=== PATIENT | male | born 1985 | race Caucasian/White ===

== ENCOUNTER 2016-12-18 12:39 | Emergency (ER) | payer OTHER ==
[~2016-12-18 12:39] MED LIST: ALBU17IN2 INH; AZIT500T2 PO; BACT800T5 PO; HYDR-3713 PO; LISI10TA4 PO; METF850T PO; OSEL75CA PO; PRED20TA PO; SALI0.653; TESS100C PO
[2016-12-18] MEDS ORDERED: KETOROLAC 30 MG/ML VIAL (J1885) As Ordered ONE (13:06)
--- NOTE | 2016-12-18 14:36 | EDDOCDS ---
Physician Documentation [facility] Name: Jr Ragland Age: 31 yrs Sex: Male : 1985 Arrival Date: 12/18/2016 Time: 12:39 Bed TR7 Private MD: NO PRIMARY PHYSICIAN, . Disposition: 12/18/16 14:12 Discharged to Home/Self Care. Impression: Strain of muscle, fascia and tendon of lower back, Sciatica, right side. - Condition is Stable. - Discharge Instructions: Back Pain, Adult, Muscle Strain, Sciatica. - Prescriptions for Ibuprofen 800 mg Oral Tablet - take 1 tablet by ORAL route every 8 hours As needed take with food; 30 tablet. Robaxin 500 mg Oral Tablet - take 2 tablet by ORAL route every 6 hours As needed; 40 tablet. Ultram 50 mg Oral Tablet - take 1 tablet by ORAL route every 6 hours As needed MDD: 4 tabs; 20 tablet. - Medication Reconciliation, Local Pharmacy Hours, Work Release Form - 1 day form. - Follow up: Tristen Varela; When: As needed; Reason: Recheck today's complaints. Follow up: Emergency Department; When: As needed; Reason: Worsening of conditions. - Problem is new. - Symptoms have improved. Historical: - Allergies: Red Dye; - Home Meds: 1. albuterol sulfate 90 mcg/actuation inhalation HFAA 2 puffs every 4-6 hours 2. Levaquin 500 mg Oral tab 1 tab every 24 hours - PMHx: Hypertension; Diabetes - NIDDM: uncontrolled; - PSHx: bilateral knee surgery; Tonsillectomy; Adenoidectomy; - Social history: Smoking status: Patient uses tobacco products, heavy tobacco smoker. No barriers to communication noted, The patient speaks fluent Kinyarwanda, Speaks appropriately for age. - Family history: Not pertinent. - : The pt / caregiver states he / she is not on anticoagulants. Home medication list is obtained from the patient. - Exposure Risk Screening:: None identified. Vital Signs: 12/18 12:41 BP 156 / 79; Pulse 96; Resp 18 S; Temp 98.0(O); Pulse Ox 95% on R/A; Weight 99.79 kg / gr2 220 lbs (R); Height 6 ft. 3 in. (190.50 cm) (R); Pain 9/10; 14:15 BP 122 / 69 LA Sitting (auto/lg); Pulse 80; Resp 22; Temp 97.9(T); Pulse Ox 95% on R/A; bnb Pain 8/10; 12:41 Body Mass Index 27.50 (99.79 kg, 190.50 cm) gr2 14:15 PT STATED HIS PAIN LEVEL IS STILL VERY HIGH. bnb MDM: 12:58 ketorolac 60 mg IM once ordered. ar2 12:58 Diazepam 5 mg IM once ordered. ar2 13:28 Financial registration complete. mm15 13:28 [facility] Payment Agreement was scanned into [employer] and attached to record. mm15 Administered Medications: 13:14 Drug: ketorolac 60 mg [ketorolac 30 mg/mL (1 mL) injection solution (2 mL)] Route: IM; mk4 Site: left gluteus; 13:14 Drug: Diazepam 5 mg [diazepam 5 mg/mL injection syringe (1 mL)] Route: IM; Site: left mk4 gluteus; Signatures: Liborio Hamilton PA-C PA-C ar2 Macy Esparza RN RN hs1 Naya Mayer mm15 Jesusita Puga RN RN mk4 The chart was reviewed and I authenticate all verbal orders and agree with the evaluation and treatment provided.Attachments: 13:28 [facility] Payment Agreement mm15 MTDD
--- NOTE | 2016-12-18 14:36 | EDDOCDS ---
Nurse's Notes [facility] Name: Jr Ragland Age: 31 yrs Sex: Male : 1985 Arrival Date: 12/18/2016 Time: 12:39 Bed TR7 Private MD: NO PRIMARY PHYSICIAN, . Diagnosis: Strain of muscle, fascia and tendon of lower back;Sciatica, right side Presentation: 12/18 12:43 Presenting complaint: Patient states: while carrying a washing machine down stairs felt hs1 back lock up and uncomfortable. Acute neurological deficits are not present. Mechanism of Injury: Lifting. Adult Sepsis Screening: The patient does not have new or worsening altered mentation. Patient's respiratory rate is less than 22. Systolic blood pressure is greater than 100. Patient has a qSOFA score of 0- Negative Sepsis Screen. Suicide/Homicide risk assessment- the patient denies having any suicidal and/or homicidal ideations and does not present with any other emotional, behavioral or mental health complaints. Status: Patient is not a underwriting service representative or dependent. Transition of care: patient was not received from another setting of care. 12:43 Acuity: SARKIS Level 4 hs1 12:43 Method Of Arrival: Walkin/Carried/Asstd hs1 Triage Assessment: 12:46 General: Appears uncomfortable, Behavior is appropriate for age, cooperative. Pain: hs1 Location: right low back Pain currently is 9 out of 10 on a pain scale. Pain radiates to right leg. HIV screening NA for this visit Offered previously. Musculoskeletal: Range of motion intact in all extremities. Historical: - Allergies: Red Dye; - Home Meds: 1. albuterol sulfate 90 mcg/actuation inhalation HFAA 2 puffs every 4-6 hours 2. Levaquin 500 mg Oral tab 1 tab every 24 hours - PMHx: Hypertension; Diabetes - NIDDM: uncontrolled; - PSHx: bilateral knee surgery; Tonsillectomy; Adenoidectomy; - Social history: Smoking status: Patient uses tobacco products, heavy tobacco smoker. No barriers to communication noted, The patient speaks fluent Hebrew, Speaks appropriately for age. - Family history: Not pertinent. - : The pt / caregiver states he / she is not on anticoagulants. Home medication list is obtained from the patient. - Exposure Risk Screening:: None identified. Screenin:42 Infection Control. gr2 14:34 Screening information is obtained from the patient. Fall risk: No risks identified. hs1 Assistance ADL's: requires no assistance with activities of daily living. Abuse/DV Screen: The patient / caregiver reports he/she is: not in a situation that causes fear, pain or injury. Nutritional screening: No deficits noted. Advance Directives: There is no active DNR order. home support is adequate. Assessment: 13:17 General: Appears uncomfortable, Behavior is cooperative. Awake, alert, oriented. Skin mk4 warm and dry. Moves all extremities. Respirations unlabored. The patient / caregiver is instructed regarding the plan of care and ED course. 13:17 Pain: Complains of pain in right low back. mk4 14:31 General: Appears comfortable. mk4 Vital Signs: 12:41 BP 156 / 79; Pulse 96; Resp 18 S; Temp 98.0(O); Pulse Ox 95% on R/A; Weight 99.79 kg gr2 (R); Height 6 ft. 3 in. (190.50 cm) (R); Pain 9/10; 14:15 BP 122 / 69 LA Sitting (auto/lg); Pulse 80; Resp 22; Temp 97.9(T); Pulse Ox 95% on R/A; bnb Pain 8/10; 12:41 Body Mass Index 27.50 (99.79 kg, 190.50 cm) gr2 14:15 PT STATED HIS PAIN LEVEL IS STILL VERY HIGH. bnb Vitals: 12:41 Log In Time: December 18, 2016 at 12:41. gr2 ED Course: 12:40 Patient visited by Emmanuel Rodriguez. gr2 12:40 NO PRIMARY PHYSICIAN, . is Private Physician. gr2 12:40 Patient moved to Waiting gr2 12:42 Patient visited by Emmanuel Rodriguez. gr2 12:42 Patient moved to Pre RCE gr2 12:44 Triage Initiated hs1 12:47 Patient moved to Triage 3 hs1 12:48 Liborio Hamilton PA-C is PHCP. ar2 12:48 Karly Capone MD is Attending Physician. ar2 12:48 Patient visited by Liborio Hamilton PA-C. ar2 13:12 Patient moved to PD2 / mlb1 13:24 Patient visited by Jesusita Puga RN. mk4 13:28 [facility] Payment Agreement was scanned into [employer] and attached to record. mm15 13:55 Patient visited by Jesusita Puga RN. mk4 14:11 Tristen Varela is Referral Physician. ar2 14:17 Patient visited by Princess Everett PCA. bnb 14:31 Patient moved to 7 mk4 14:34 No IV's were initiated during this patient's visit. No procedures done that require hs1 assistance. 14:35 Patient has correct armband on for positive identification. hs1 Administered Medications: 13:14 Drug: ketorolac 60 mg [ketorolac 30 mg/mL (1 mL) injection solution (2 mL)] Route: IM; mk4 Site: left gluteus; 13:14 Drug: Diazepam 5 mg [diazepam 5 mg/mL injection syringe (1 mL)] Route: IM; Site: left mk4 gluteus; Order Results: There are currently no results for this order. Outcome: 14:12 Discharge ordered by Provider. ar2 14:34 Discharge Assessment: Patient awake, alert and oriented x 3. No cognitive and/or hs1 functional deficits noted. Patient verbalized understanding of disposition instructions. patient administered narcotics - yes. Pt provided with safe discharge. The following High Risk Discharge criteria are identified: None. Discharged to home ambulatory, with significant other. Condition: stable. Discharge instructions given to patient, Instructed on discharge instructions, follow up and referral plans. medication usage, Demonstrated understanding of instructions, medications, Pt was receptive of discharge instructions/ teaching. Prescriptions given X 3. No special radiology studies were completed. Property sent home with patient. 14:35 Patient left the ED. hs1 Signatures: Jase Allen RN RN mlb1 Liborio Hamilton, SUE ROGERS ar2 Macy Esparza RN RN hs1 Emmanuel Rodriguez gr2 Naya Mayer mm15 Jesusita Puga RN RN mk4 Princess Everett PCA AVICULTURIST bnb Corrections: (The following items were deleted from the chart) 13:18 13:17 No apparent distress. mk4 mk4 14:33 14:32 Reassessment: Patient states feeling better. Patient states symptoms have mk4 improved. mk4 MTDD
--- NOTE | 2016-12-20 15:36 | EDDOCDS ---
Physician Documentation [facility] Name: Jr Ragland Age: 31 yrs Sex: Male : 1985 Arrival Date: 12/18/2016 Time: 12:39 Bed TR7 Private MD: NO PRIMARY PHYSICIAN, . Disposition: 12/18/16 14:12 Discharged to Home/Self Care. Impression: Strain of muscle, fascia and tendon of lower back, Sciatica, right side. - Condition is Stable. - Discharge Instructions: Back Pain, Adult, Muscle Strain, Sciatica. - Prescriptions for Ibuprofen 800 mg Oral Tablet - take 1 tablet by ORAL route every 8 hours As needed take with food; 30 tablet. Robaxin 500 mg Oral Tablet - take 2 tablet by ORAL route every 6 hours As needed; 40 tablet. Ultram 50 mg Oral Tablet - take 1 tablet by ORAL route every 6 hours As needed MDD: 4 tabs; 20 tablet. - Medication Reconciliation, Local Pharmacy Hours, Work Release Form - 1 day form. - Follow up: Tristen Varela; When: As needed; Reason: Recheck today's complaints. Follow up: Emergency Department; When: As needed; Reason: Worsening of conditions. - Problem is new. - Symptoms have improved. Historical: - Allergies: Red Dye; - Home Meds: 1. albuterol sulfate 90 mcg/actuation inhalation HFAA 2 puffs every 4-6 hours 2. Levaquin 500 mg Oral tab 1 tab every 24 hours - PMHx: Hypertension; Diabetes - NIDDM: uncontrolled; - PSHx: bilateral knee surgery; Tonsillectomy; Adenoidectomy; - Social history: Smoking status: Patient uses tobacco products, heavy tobacco smoker. No barriers to communication noted, The patient speaks fluent Upper Sorbian, Speaks appropriately for age. - Family history: Not pertinent. - : The pt / caregiver states he / she is not on anticoagulants. Home medication list is obtained from the patient. - Exposure Risk Screening:: None identified. Vital Signs: 12/18 12:41 BP 156 / 79; Pulse 96; Resp 18 S; Temp 98.0(O); Pulse Ox 95% on R/A; Weight 99.79 kg / gr2 220 lbs (R); Height 6 ft. 3 in. (190.50 cm) (R); Pain 9/10; 14:15 BP 122 / 69 LA Sitting (auto/lg); Pulse 80; Resp 22; Temp 97.9(T); Pulse Ox 95% on R/A; bnb Pain 8/10; 12:41 Body Mass Index 27.50 (99.79 kg, 190.50 cm) gr2 14:15 PT STATED HIS PAIN LEVEL IS STILL VERY HIGH. bnb MDM: 12:58 ketorolac 60 mg IM once ordered. ar2 12:58 Diazepam 5 mg IM once ordered. ar2 13:28 Financial registration complete. mm15 13:28 [facility] Payment Agreement was scanned into [employer] and attached to record. mm15 12/19 09:45 T-Sheet-- Draft Copy was scanned into [employer] and attached to record. gb Administered Medications: 12/18 13:14 Drug: ketorolac 60 mg [ketorolac 30 mg/mL (1 mL) injection solution (2 mL)] Route: IM; mk4 Site: left gluteus; 13:14 Drug: Diazepam 5 mg [diazepam 5 mg/mL injection syringe (1 mL)] Route: IM; Site: left mk4 gluteus; Signatures: Misa Macdonald, Reg Reg gb Liborio Hamilton, LOVEC PARomi ar2 Macy Esparza RN RN hs1 Naya Mayer mm15 Jesusita Puga RN RN mk4 The chart was reviewed and I authenticate all verbal orders and agree with the evaluation and treatment provided.Attachments: : [facility] Payment Agreement mm15 12/19 09:45 T-Sheet-- Draft Copy gb Chart Complete MTDD
--- NOTE | 2016-12-20 15:37 | EDDOCDS ---
Nurse's Notes [facility] Name: Jr Ragland Age: 31 yrs Sex: Male : 1985 Arrival Date: 12/18/2016 Time: 12:39 Bed TR7 Private MD: NO PRIMARY PHYSICIAN, . Diagnosis: Strain of muscle, fascia and tendon of lower back;Sciatica, right side Presentation: 12/18 12:43 Presenting complaint: Patient states: while carrying a washing machine down stairs felt hs1 back lock up and uncomfortable. Acute neurological deficits are not present. Mechanism of Injury: Lifting. Adult Sepsis Screening: The patient does not have new or worsening altered mentation. Patient's respiratory rate is less than 22. Systolic blood pressure is greater than 100. Patient has a qSOFA score of 0- Negative Sepsis Screen. Suicide/Homicide risk assessment- the patient denies having any suicidal and/or homicidal ideations and does not present with any other emotional, behavioral or mental health complaints. Status: Patient is not a home service consultant or dependent. Transition of care: patient was not received from another setting of care. 12:43 Acuity: SARKIS Level 4 hs1 12:43 Method Of Arrival: Walkin/Carried/Asstd hs1 Triage Assessment: 12:46 General: Appears uncomfortable, Behavior is appropriate for age, cooperative. Pain: hs1 Location: right low back Pain currently is 9 out of 10 on a pain scale. Pain radiates to right leg. HIV screening NA for this visit Offered previously. Musculoskeletal: Range of motion intact in all extremities. Historical: - Allergies: Red Dye; - Home Meds: 1. albuterol sulfate 90 mcg/actuation inhalation HFAA 2 puffs every 4-6 hours 2. Levaquin 500 mg Oral tab 1 tab every 24 hours - PMHx: Hypertension; Diabetes - NIDDM: uncontrolled; - PSHx: bilateral knee surgery; Tonsillectomy; Adenoidectomy; - Social history: Smoking status: Patient uses tobacco products, heavy tobacco smoker. No barriers to communication noted, The patient speaks fluent Portuguese, Speaks appropriately for age. - Family history: Not pertinent. - : The pt / caregiver states he / she is not on anticoagulants. Home medication list is obtained from the patient. - Exposure Risk Screening:: None identified. Screenin:42 Infection Control. gr2 14:34 Screening information is obtained from the patient. Fall risk: No risks identified. hs1 Assistance ADL's: requires no assistance with activities of daily living. Abuse/DV Screen: The patient / caregiver reports he/she is: not in a situation that causes fear, pain or injury. Nutritional screening: No deficits noted. Advance Directives: There is no active DNR order. home support is adequate. Assessment: 13:17 General: Appears uncomfortable, Behavior is cooperative. Awake, alert, oriented. Skin mk4 warm and dry. Moves all extremities. Respirations unlabored. The patient / caregiver is instructed regarding the plan of care and ED course. 13:17 Pain: Complains of pain in right low back. mk4 14:31 General: Appears comfortable. mk4 Vital Signs: 12:41 BP 156 / 79; Pulse 96; Resp 18 S; Temp 98.0(O); Pulse Ox 95% on R/A; Weight 99.79 kg gr2 (R); Height 6 ft. 3 in. (190.50 cm) (R); Pain 9/10; 14:15 BP 122 / 69 LA Sitting (auto/lg); Pulse 80; Resp 22; Temp 97.9(T); Pulse Ox 95% on R/A; bnb Pain 8/10; 12:41 Body Mass Index 27.50 (99.79 kg, 190.50 cm) gr2 14:15 PT STATED HIS PAIN LEVEL IS STILL VERY HIGH. bnb Vitals: 12:41 Log In Time: December 18, 2016 at 12:41. gr2 ED Course: 12:40 Patient visited by Emmanuel Rodriguez. gr2 12:40 NO PRIMARY PHYSICIAN, . is Private Physician. gr2 12:40 Patient moved to Waiting gr2 12:42 Patient visited by Emmanuel Rodriguez. gr2 12:42 Patient moved to Pre RCE gr2 12:44 Triage Initiated hs1 12:47 Patient moved to Triage 3 hs1 12:48 Liborio Hamilton PA-C is PHCP. ar2 12:48 Karly Capone MD is Attending Physician. ar2 12:48 Patient visited by Liborio Hamilton PA-C. ar2 13:12 Patient moved to PD2 / mlb1 13:24 Patient visited by Jesusita Puga RN. mk4 13:28 [facility] Payment Agreement was scanned into [employer] and attached to record. mm15 13:55 Patient visited by Jesusita Puga RN. mk4 14:11 Tristen Varela is Referral Physician. ar2 14:17 Patient visited by Princess Everett PCA. bnb 14:31 Patient moved to 7 mk4 14:34 No IV's were initiated during this patient's visit. No procedures done that require hs1 assistance. 14:35 Patient has correct armband on for positive identification. hs1 12/19 09:45 T-Sheet-- Draft Copy was scanned into [employer] and attached to record. gb Administered Medications: 12/18 13:14 Drug: ketorolac 60 mg [ketorolac 30 mg/mL (1 mL) injection solution (2 mL)] Route: IM; mk4 Site: left gluteus; 13:14 Drug: Diazepam 5 mg [diazepam 5 mg/mL injection syringe (1 mL)] Route: IM; Site: left mk4 gluteus; Order Results: There are currently no results for this order. Outcome: 14:12 Discharge ordered by Provider. ar2 14:34 Discharge Assessment: Patient awake, alert and oriented x 3. No cognitive and/or hs1 functional deficits noted. Patient verbalized understanding of disposition instructions. patient administered narcotics - yes. Pt provided with safe discharge. The following High Risk Discharge criteria are identified: None. Discharged to home ambulatory, with significant other. Condition: stable. Discharge instructions given to patient, Instructed on discharge instructions, follow up and referral plans. medication usage, Demonstrated understanding of instructions, medications, Pt was receptive of discharge instructions/ teaching. Prescriptions given X 3. No special radiology studies were completed. Property sent home with patient. 14:35 Patient left the ED. hs1 Signatures: Misa Macdonald, Reg Reg gb Jase Allen RN RN mlb1 Liborio Hamilton PA-C PARomi ar2 Macy Esparza RN RN hs1 Emmanuel Rodriguez gr2 Naya Mayer mm15 Jesusita Puga, MARTI RN 4 Princess Everett PCA JUMBO OPERATOR bnb Corrections: (The following items were deleted from the chart) 13:18 13:17 No apparent distress. mk4 mk4 14:33 14:32 Reassessment: Patient states feeling better. Patient states symptoms have mk4 improved. mk4 Chart Complete MTDD
--- NOTE | 2016-12-20 15:37 | EDDOCDS ---
Physician Documentation [facility] Name: Jr Ragland Age: 31 yrs Sex: Male : 1985 Arrival Date: 12/18/2016 Time: 12:39 Bed TR7 Private MD: NO PRIMARY PHYSICIAN, . Disposition: 12/18/16 14:12 Discharged to Home/Self Care. Impression: Strain of muscle, fascia and tendon of lower back, Sciatica, right side. - Condition is Stable. - Discharge Instructions: Back Pain, Adult, Muscle Strain, Sciatica. - Prescriptions for Ibuprofen 800 mg Oral Tablet - take 1 tablet by ORAL route every 8 hours As needed take with food; 30 tablet. Robaxin 500 mg Oral Tablet - take 2 tablet by ORAL route every 6 hours As needed; 40 tablet. Ultram 50 mg Oral Tablet - take 1 tablet by ORAL route every 6 hours As needed MDD: 4 tabs; 20 tablet. - Medication Reconciliation, Local Pharmacy Hours, Work Release Form - 1 day form. - Follow up: Tristen Varela; When: As needed; Reason: Recheck today's complaints. Follow up: Emergency Department; When: As needed; Reason: Worsening of conditions. - Problem is new. - Symptoms have improved. Historical: - Allergies: Red Dye; - Home Meds: 1. albuterol sulfate 90 mcg/actuation inhalation HFAA 2 puffs every 4-6 hours 2. Levaquin 500 mg Oral tab 1 tab every 24 hours - PMHx: Hypertension; Diabetes - NIDDM: uncontrolled; - PSHx: bilateral knee surgery; Tonsillectomy; Adenoidectomy; - Social history: Smoking status: Patient uses tobacco products, heavy tobacco smoker. No barriers to communication noted, The patient speaks fluent Georgian, Speaks appropriately for age. - Family history: Not pertinent. - : The pt / caregiver states he / she is not on anticoagulants. Home medication list is obtained from the patient. - Exposure Risk Screening:: None identified. Vital Signs: 12/18 12:41 BP 156 / 79; Pulse 96; Resp 18 S; Temp 98.0(O); Pulse Ox 95% on R/A; Weight 99.79 kg / gr2 220 lbs (R); Height 6 ft. 3 in. (190.50 cm) (R); Pain 9/10; 14:15 BP 122 / 69 LA Sitting (auto/lg); Pulse 80; Resp 22; Temp 97.9(T); Pulse Ox 95% on R/A; bnb Pain 8/10; 12:41 Body Mass Index 27.50 (99.79 kg, 190.50 cm) gr2 14:15 PT STATED HIS PAIN LEVEL IS STILL VERY HIGH. bnb MDM: 12:58 ketorolac 60 mg IM once ordered. ar2 12:58 Diazepam 5 mg IM once ordered. ar2 13:28 Financial registration complete. mm15 13:28 [facility] Payment Agreement was scanned into [employer] and attached to record. mm15 12/19 09:45 T-Sheet-- Draft Copy was scanned into [employer] and attached to record. gb Administered Medications: 12/18 13:14 Drug: ketorolac 60 mg [ketorolac 30 mg/mL (1 mL) injection solution (2 mL)] Route: IM; mk4 Site: left gluteus; 13:14 Drug: Diazepam 5 mg [diazepam 5 mg/mL injection syringe (1 mL)] Route: IM; Site: left mk4 gluteus; Signatures: Misa Macdonald, Reg Reg gb Liborio Hamilton, LOVEC PARomi ar2 Macy Esparza RN RN hs1 Naya Mayer mm15 Jesusita Puga RN RN mk4 The chart was reviewed and I authenticate all verbal orders and agree with the evaluation and treatment provided.Attachments: : [facility] Payment Agreement mm15 12/19 09:45 T-Sheet-- Draft Copy gb Chart Complete MTDD
== END 2016-12-18 14:35 | disposition home or self-care (01) ==
LOC: M ED 12:39
DX: S29.012A Strain of muscle and tendon of back wall of thorax, initial encounter (principal); X58.XXXA Exposure to other specified factors, initial encounter; Y92.89 Other specified places as the place of occurrence of the external cause; Y93.89 Activity, other specified; Y99.8 Other external cause status; M54.31 Sciatica, right side; I10 Essential (primary) hypertension; E11.65 Type 2 diabetes mellitus with hyperglycemia; F17.210 Nicotine dependence, cigarettes, uncomplicated; Z79.899 Other long term (current) drug therapy; Z91.02 Food additives allergy status
CPT/HCPCS: 96372; 99283; J1885; J3360

== ENCOUNTER 2016-12-23 03:28 | Emergency (ER) | payer OTHER ==
[2016-12-23] MEDS ORDERED: KETOROLAC 30 MG/ML VIAL (J1885) As Ordered ONE (06:13)
[2016-12-23] MEDS ORDERED: MORPHINE 4 MG/ML 1ML SYRINGE As Ordered ONE (06:13)
--- NOTE | 2016-12-23 08:08 | EDDOCDS ---
Nurse's Notes [facility] Name: Jr Ragland Age: 31 yrs Sex: Male : 1985 Arrival Date: 12/23/2016 Time: 03:28 Bed 7 Private MD: Diagnosis: Low back pain Presentation: 12/23 03:53 Presenting complaint: Patient states: Hurt back last week carrying a wash machine. Was kmg1 seen here for same. Was given Robaxin, tramadol, and ibuprofen. Has not had any real relief since the injection he received here. Suicide/Homicide risk assessment- the patient denies having any suicidal and/or homicidal ideations and does not present with any other emotional, behavioral or mental health complaints. Status: Patient is not a residential service technician or dependent. Transition of care: patient was not received from another setting of care. 03:53 Acuity: SARKIS Level 4 [facility] [place] 03:53 Method Of Arrival: Walkin/Carried/Asstd [facility] 08:06 Adult Sepsis Screening: The patient does not have new or worsening altered mentation. dls Patient's respiratory rate is less than 22. Systolic blood pressure is greater than 100. Patient has a qSOFA score of 0- Negative Sepsis Screen. Triage Assessment: 03:58 General: Appears in no apparent distress, uncomfortable, Behavior is appropriate for kmg1 age, cooperative, pleasant. Pain: Location: lumbar area, right low back and right lower back Pain currently is 10 out of 10 on a pain scale. Quality of pain is described as sharp, stabbing. HIV screening NA for this visit Offered previously. Musculoskeletal: Reports pain in lumbar area and right low back. Historical: - Allergies: Red Dye; Tramadol HCl (Rash); - Home Meds: 1. albuterol sulfate 90 mcg/actuation Inhl HFAA 2 puffs every 4-6 hours (Last dose: 12/22/2016 17:00) 2. Robaxin 500 mg Oral tab 2 tabs 4 times per day (Last dose: 12/22/2016 17:00) 3. ibuprofen 800 mg Oral tab 1 tab 3 times per day (Last dose: 12/22/2016 19:00) - PMHx: Hypertension; Diabetes - NIDDM: controlled; - PSHx: Adenoidectomy; Tonsillectomy; bilateral knee surgery; - Social history: Smoking status: Patient uses tobacco products, heavy tobacco smoker. No barriers to communication noted, The patient speaks fluent Urdu, Speaks appropriately for age. - Family history: Not pertinent. - : The pt / caregiver states he / she is not on anticoagulants. Home medication list is obtained from the patient. - Exposure Risk Screening:: None identified. Screenin:05 Screening information is obtained from the patient. Fall risk: No risks identified. dls Assistance ADL's: requires no assistance with activities of daily living. Abuse/DV Screen: The patient / caregiver reports he/she is: not in a situation that causes fear, pain or injury. Nutritional screening: No deficits noted. Advance Directives: Currently, there is no health care proxy. There is no active DNR order. There is no living will. There is no Power of Spray Gun Sizer. Advance directive information has not previously been placed in an [facility] medical record. home support is adequate. Assessment: 04:37 General: Appears uncomfortable. General: Patient reports muscle relaxers and pain nn1 medication previously prescribed are no longer working. Reports injury to his back last week when lifting a dryer.. Pain: Location: buttocks and right lower back Aggravated by increased activity, repositioning, weight bearing. Neurological: Level of Consciousness is awake, alert. Respiratory: Airway is patent Respiratory effort is even, unlabored, Respiratory pattern is regular, symmetrical. Derm: Skin is flushed. Musculoskeletal: Circulation, motion, and sensation intact Capillary refill < 3 seconds Range of motion intact in all extremities. difficulty ambulating due to right low back pain. Injury Description: lifting dryer. 05:45 General: Patient becoming increasingly agitated due to pain, awaiting to be seen by a nn1 provider. No changes in condition at this time.. 06:24 General: Patient medicated for pain per orders. Patient reports improvement of pain, nn1 states he is sleepy at this time. Side rails up x 2, patient placed on NIBP and O2 monitor. Patient instructed not to get out of bed without assistance. Will continue to monitor.. Respiratory: Airway is patent Respiratory effort is even, unlabored, Respiratory pattern is regular, symmetrical. 07:26 General: Pt awake states pain is 4/10 at rest will ambulate pt and access for pain.. dls 07:32 General: Pt ambulated to nurses station states feeling much improved after medications dls MD aware pt ambulated back to room tolerating po fluids well.. Vital Signs: 03:58 BP 143 / 82; Pulse 99; Resp 20; Temp 97.9(O); Pulse Ox 96% on R/A; Weight 145.15 kg km (R); Height 6 ft. 3 in. (190.50 cm) (R); Pain 10/10; 07:49 BP 145 / 82; Pulse 84; Resp 16; Temp 97.6(O); Pulse Ox 96% on R/A; Pain 4/10; jrd 03:58 Body Mass Index 40.00 (145.15 kg, 190.50 cm) [facility] Vitals: 03:58 Log In Time: December 23, 2016 at 03:30. [facility] ED Course: 03:29 Patient visited by Cayla Richter Reg. hs2 03:29 Patient moved to Waiting hs2 03:55 Triage Initiated [facility] 04:04 Patient moved to 7 km 04:32 Patient visited by Fatuma Young RN. nn1 05:45 Patient visited by Fatuma Young RN. nn1 05:46 Patient visited by Fatuma Young RN. nn1 06:01 Tray Gale DO is Attending Physician. mm11 06:01 Patient visited by Tray Gale DO. mm11 06:07 Patient visited by Tray Gale DO. mm11 06:26 Inserted saline lock: 20 gauge in right antecubital area and blood collected. The nn1 patient tolerated the procedure well. 07:13 Patient visited by Tray Gale DO. mm11 07:17 Report received from Fatuma KIDD. dls 07:19 Delia Ravi, MARTI is Primary Nurse. dls 07:24 [facility] Payment Agreement was scanned into [employer] and attached to record. hs2 07:38 [facility] is Referral Physician. mm11 07:49 Patient visited by Ajit Gr PCA. jrd 08:04 Discontinued IV lock intact, bleeding controlled, pressure dressing applied, No dls redness/swelling at site. No procedures done that require assistance. 08:05 The patient / caregiver is instructed regarding the plan of care and ED course. Patient dls has correct armband on for positive identification. Placed in gown. Bed in low position. Call light in reach. Administered Medications: 06:24 Drug: morphine 4 mg [morphine 4 mg/mL intravenous cartridge (1 mL)] Route: IVP; Site: nn1 right antecubital; 06:24 Drug: Diazepam 5 mg [diazepam 5 mg/mL injection syringe (1 mL)] Route: IVP; Site: right nn1 antecubital; 06:24 Drug: ketorolac 30 mg [ketorolac 30 mg/mL (1 mL) injection solution (1 mL)] Route: IVP; nn1 Site: right antecubital; Order Results: There are currently no results for this order. Outcome: 07:38 Discharge ordered by Provider. mm11 08:04 Discharge Assessment: Patient awake, alert and oriented x 3. No cognitive and/or dls functional deficits noted. Patient verbalized understanding of disposition instructions. patient administered narcotics - yes. Pt provided with safe discharge. The following High Risk Discharge criteria are identified: None. Discharged to home ambulatory. Condition: stable Condition: improved. Discharge instructions given to patient. No special radiology studies were completed. Property :Personal belongings accompany Pt. 08:07 Patient left the ED. dls Signatures: Indigo Lu, RN RN kmg1 Delia Ravi RN RN dls Tray Gale DO DO mm11 Ajit Gr, STRIPPING AND BOOKING MACHINE OPERATOR STRIPPING AND BOOKING MACHINE OPERATOR d Fatuma Young RN RN nn1 Cayla Richter, Reg Reg hs2 LEONARDD
--- NOTE | 2016-12-23 08:08 | EDDOCDS ---
Physician Documentation [facility] Name: Jr Ragland Age: 31 yrs Sex: Male : 1985 Arrival Date: 12/23/2016 Time: 03:28 Bed 7 Private MD: Disposition: 12/23/16 07:38 Discharged to Home/Self Care. Impression: Low back pain. - Condition is Stable. - Discharge Instructions: Back Pain, Adult, Back Pain, Adult, [id number]. - Prescriptions for Naprosyn 500 mg Oral Tablet - take 1 tablet by ORAL route 2 times per day take with food; 30 tablet. Percocet 5- 325 mg Oral Tablet - take 1 tablet by ORAL route every 6 hours As needed MDD: 4 tabs; 20 tablet. Valium 5 mg Oral Tablet - take 1 tablet by ORAL route every 8 hours As needed MDD: 3 tabs; 20 tablet. - Medication Reconciliation, Local Pharmacy Hours, Work Release Form - 2 day form. - Follow up: [facility]; When: Call to arrange an appointment; Reason: Continuance of care. - Problem is an acute exacerbation. - Symptoms have improved. Historical: - Allergies: Red Dye; Tramadol HCl (Rash); - Home Meds: 1. albuterol sulfate 90 mcg/actuation Inhl HFAA 2 puffs every 4-6 hours (Last dose: 12/22/2016 17:00) 2. Robaxin 500 mg Oral tab 2 tabs 4 times per day (Last dose: 12/22/2016 17:00) 3. ibuprofen 800 mg Oral tab 1 tab 3 times per day (Last dose: 12/22/2016 19:00) - PMHx: Hypertension; Diabetes - NIDDM: controlled; - PSHx: Adenoidectomy; Tonsillectomy; bilateral knee surgery; - Social history: Smoking status: Patient uses tobacco products, heavy tobacco smoker. No barriers to communication noted, The patient speaks fluent [place], Speaks appropriately for age. - Family history: Not pertinent. - : The pt / caregiver states he / she is not on anticoagulants. Home medication list is obtained from the patient. - Exposure Risk Screening:: None identified. Vital Signs: 12/23 03:58 BP 143 / 82; Pulse 99; Resp 20; Temp 97.9(O); Pulse Ox 96% on R/A; Weight 145.15 kg / kmg1 320 lbs (R); Height 6 ft. 3 in. (190.50 cm) (R); Pain 10/10; 07:49 BP 145 / 82; Pulse 84; Resp 16; Temp 97.6(O); Pulse Ox 96% on R/A; Pain 4/10; jrd 03:58 Body Mass Index 40.00 (145.15 kg, 190.50 cm) km MDM: 06:08 IV Saline Lock ordered. mm11 06:08 morphine 4 mg IVP every 30 minutes; Document pain score/vitals after each dose (Hold if mm11 SBP < 90mmHg) x2 ordered. 06:08 Diazepam 5 mg IVP once ordered. mm11 06:08 ketorolac 30 mg IVP once ordered. mm11 06:11 Financial registration complete. hs2 07:13 Ambulate patient to assess pain tolerance ordered. mm11 07:24 [facility] Payment Agreement was scanned into [employer] and attached to record. hs2 Administered Medications: 06:24 Drug: morphine 4 mg [morphine 4 mg/mL intravenous cartridge (1 mL)] Route: IVP; Site: nn1 right antecubital; 06:24 Drug: Diazepam 5 mg [diazepam 5 mg/mL injection syringe (1 mL)] Route: IVP; Site: right nn1 antecubital; 06:24 Drug: ketorolac 30 mg [ketorolac 30 mg/mL (1 mL) injection solution (1 mL)] Route: IVP; nn1 Site: right antecubital; Signatures: Indigo Lu RN RN km Delia Ravi RN RN dls Maynard, Matthew, DO DO mm11 Cayla Richter, Reg Reg hs2 Fatuma Young RN nn1 The chart was reviewed and I authenticate all verbal orders and agree with the evaluation and treatment provided.Attachments: 07:24 [facility] Payment Agreement hs2 [facility] [place]
--- NOTE | 2016-12-25 09:08 | EDDOCDS ---
Nurse's Notes [facility] Name: Jr Ragland Age: 31 yrs Sex: Male : 1985 Arrival Date: 12/23/2016 Time: 03:28 Bed 7 Private MD: Diagnosis: Low back pain Presentation: 12/23 03:53 Presenting complaint: Patient states: Hurt back last week carrying a wash machine. Was kmg1 seen here for same. Was given Robaxin, tramadol, and ibuprofen. Has not had any real relief since the injection he received here. Suicide/Homicide risk assessment- the patient denies having any suicidal and/or homicidal ideations and does not present with any other emotional, behavioral or mental health complaints. Status: Patient is not a human service coordinator or dependent. Transition of care: patient was not received from another setting of care. 03:53 Acuity: SARKIS Level 4 [facility] 03:53 Method Of Arrival: Walkin/Carried/Asstd [facility] 08:06 Adult Sepsis Screening: The patient does not have new or worsening altered mentation. dls Patient's respiratory rate is less than 22. Systolic blood pressure is greater than 100. Patient has a qSOFA score of 0- Negative Sepsis Screen. Triage Assessment: 03:58 General: Appears in no apparent distress, uncomfortable, Behavior is appropriate for kmg1 age, cooperative, pleasant. Pain: Location: lumbar area, right low back and right lower back Pain currently is 10 out of 10 on a pain scale. Quality of pain is described as sharp, stabbing. HIV screening NA for this visit Offered previously. Musculoskeletal: Reports pain in lumbar area and right low back. Historical: - Allergies: Red Dye; Tramadol HCl (Rash); - Home Meds: 1. albuterol sulfate 90 mcg/actuation Inhl HFAA 2 puffs every 4-6 hours (Last dose: 12/22/2016 17:00) 2. Robaxin 500 mg Oral tab 2 tabs 4 times per day (Last dose: 12/22/2016 17:00) 3. ibuprofen 800 mg Oral tab 1 tab 3 times per day (Last dose: 12/22/2016 19:00) - PMHx: Hypertension; Diabetes - NIDDM: controlled; - PSHx: Adenoidectomy; Tonsillectomy; bilateral knee surgery; - Social history: Smoking status: Patient uses tobacco products, heavy tobacco smoker. No barriers to communication noted, The patient speaks fluent Setswana, Speaks appropriately for age. - Family history: Not pertinent. - : The pt / caregiver states he / she is not on anticoagulants. Home medication list is obtained from the patient. - Exposure Risk Screening:: None identified. Screenin:05 Screening information is obtained from the patient. Fall risk: No risks identified. dls Assistance ADL's: requires no assistance with activities of daily living. Abuse/DV Screen: The patient / caregiver reports he/she is: not in a situation that causes fear, pain or injury. Nutritional screening: No deficits noted. Advance Directives: Currently, there is no health care proxy. There is no active DNR order. There is no living will. There is no Power of Dry Pan Feeder. Advance directive information has not previously been placed in an [facility] medical record. home support is adequate. Assessment: 04:37 General: Appears uncomfortable. General: Patient reports muscle relaxers and pain nn1 medication previously prescribed are no longer working. Reports injury to his back last week when lifting a dryer.. Pain: Location: buttocks and right lower back Aggravated by increased activity, repositioning, weight bearing. Neurological: Level of Consciousness is awake, alert. Respiratory: Airway is patent Respiratory effort is even, unlabored, Respiratory pattern is regular, symmetrical. Derm: Skin is flushed. Musculoskeletal: Circulation, motion, and sensation intact Capillary refill < 3 seconds Range of motion intact in all extremities. difficulty ambulating due to right low back pain. Injury Description: lifting dryer. 05:45 General: Patient becoming increasingly agitated due to pain, awaiting to be seen by a nn1 provider. No changes in condition at this time.. 06:24 General: Patient medicated for pain per orders. Patient reports improvement of pain, nn1 states he is sleepy at this time. Side rails up x 2, patient placed on NIBP and O2 monitor. Patient instructed not to get out of bed without assistance. Will continue to monitor.. Respiratory: Airway is patent Respiratory effort is even, unlabored, Respiratory pattern is regular, symmetrical. 07:26 General: Pt awake states pain is 4/10 at rest will ambulate pt and access for pain.. dls 07:32 General: Pt ambulated to nurses station states feeling much improved after medications dls MD aware pt ambulated back to room tolerating po fluids well.. Vital Signs: 03:58 BP 143 / 82; Pulse 99; Resp 20; Temp 97.9(O); Pulse Ox 96% on R/A; Weight 145.15 kg km (R); Height 6 ft. 3 in. (190.50 cm) (R); Pain 10/10; 07:49 BP 145 / 82; Pulse 84; Resp 16; Temp 97.6(O); Pulse Ox 96% on R/A; Pain 4/10; jrd 03:58 Body Mass Index 40.00 (145.15 kg, 190.50 cm) [facility] Vitals: 03:58 Log In Time: December 23, 2016 at 03:30. [facility] ED Course: 03:29 Patient visited by Cayla Richter Reg. hs2 03:29 Patient moved to Waiting hs2 03:55 Triage Initiated [facility] 04:04 Patient moved to 7 km 04:32 Patient visited by Fatuma Young RN. nn1 05:45 Patient visited by Fatuma Young RN. nn1 05:46 Patient visited by Fatuma Young RN. nn1 06:01 Tray Gale DO is Attending Physician. mm11 06:01 Patient visited by Tray Gale DO. mm11 06:07 Patient visited by Tray Gale DO. mm11 06:26 Inserted saline lock: 20 gauge in right antecubital area and blood collected. The nn1 patient tolerated the procedure well. 07:13 Patient visited by Tray Gale DO. mm11 07:17 Report received from Fatuma KIDD. dls 07:19 Delia Ravi, MARTI is Primary Nurse. dls 07:24 [facility] Payment Agreement was scanned into [employer] and attached to record. hs2 07:38 [facility] is Referral Physician. mm11 07:49 Patient visited by Ajit Gr PCA. jrd 08:04 Discontinued IV lock intact, bleeding controlled, pressure dressing applied, No dls redness/swelling at site. No procedures done that require assistance. 08:05 The patient / caregiver is instructed regarding the plan of care and ED course. Patient dls has correct armband on for positive identification. Placed in gown. Bed in low position. Call light in reach. 18:24 T-Sheet-- Draft Copy was scanned into [employer] and attached to record. klr Administered Medications: 06:24 Drug: morphine 4 mg [morphine 4 mg/mL intravenous cartridge (1 mL)] Route: IVP; Site: nn1 right antecubital; 06:24 Drug: Diazepam 5 mg [diazepam 5 mg/mL injection syringe (1 mL)] Route: IVP; Site: right nn1 antecubital; 06:24 Drug: ketorolac 30 mg [ketorolac 30 mg/mL (1 mL) injection solution (1 mL)] Route: IVP; nn1 Site: right antecubital; Order Results: There are currently no results for this order. Outcome: 07:38 Discharge ordered by Provider. mm11 08:04 Discharge Assessment: Patient awake, alert and oriented x 3. No cognitive and/or dls functional deficits noted. Patient verbalized understanding of disposition instructions. patient administered narcotics - yes. Pt provided with safe discharge. The following High Risk Discharge criteria are identified: None. Discharged to home ambulatory. Condition: stable Condition: improved. Discharge instructions given to patient. No special radiology studies were completed. Property :Personal belongings accompany Pt. 08:07 Patient left the ED. dls Signatures: Indigo Lu RN RN kmg1 Delia Ravi RN RN dls Tray Gale DO DO mm11 Ajit Gr, WAREHOUSE LOGISTICS MANAGER WAREHOUSE LOGISTICS MANAGER Fatuma Trujillo RN RN nn1 Cayla Richter, Reg Reg hs2 Emily Grant klr Chart Complete MTDD
--- NOTE | 2016-12-25 09:08 | EDDOCDS ---
Physician Documentation [facility] Name: Jr Ragland Age: 31 yrs Sex: Male : 1985 Arrival Date: 12/23/2016 Time: 03:28 Bed 7 Private MD: Disposition: 12/23/16 07:38 Discharged to Home/Self Care. Impression: Low back pain. - Condition is Stable. - Discharge Instructions: Back Pain, Adult, Back Pain, Adult, [id number]. - Prescriptions for Naprosyn 500 mg Oral Tablet - take 1 tablet by ORAL route 2 times per day take with food; 30 tablet. Percocet 5- 325 mg Oral Tablet - take 1 tablet by ORAL route every 6 hours As needed MDD: 4 tabs; 20 tablet. Valium 5 mg Oral Tablet - take 1 tablet by ORAL route every 8 hours As needed MDD: 3 tabs; 20 tablet. - Medication Reconciliation, Local Pharmacy Hours, Work Release Form - 2 day form. - Follow up: [facility]; When: Call to arrange an appointment; Reason: Continuance of care. - Problem is an acute exacerbation. - Symptoms have improved. Historical: - Allergies: Red Dye; Tramadol HCl (Rash); - Home Meds: 1. albuterol sulfate 90 mcg/actuation Inhl HFAA 2 puffs every 4-6 hours (Last dose: 12/22/2016 17:00) 2. Robaxin 500 mg Oral tab 2 tabs 4 times per day (Last dose: 12/22/2016 17:00) 3. ibuprofen 800 mg Oral tab 1 tab 3 times per day (Last dose: 12/22/2016 19:00) - PMHx: Hypertension; Diabetes - NIDDM: controlled; - PSHx: Adenoidectomy; Tonsillectomy; bilateral knee surgery; - Social history: Smoking status: Patient uses tobacco products, heavy tobacco smoker. No barriers to communication noted, The patient speaks fluent Georgian, Speaks appropriately for age. - Family history: Not pertinent. - : The pt / caregiver states he / she is not on anticoagulants. Home medication list is obtained from the patient. - Exposure Risk Screening:: None identified. Vital Signs: 12/23 03:58 BP 143 / 82; Pulse 99; Resp 20; Temp 97.9(O); Pulse Ox 96% on R/A; Weight 145.15 kg / kmg1 320 lbs (R); Height 6 ft. 3 in. (190.50 cm) (R); Pain 10/10; 07:49 BP 145 / 82; Pulse 84; Resp 16; Temp 97.6(O); Pulse Ox 96% on R/A; Pain 4/10; jrd 03:58 Body Mass Index 40.00 (145.15 kg, 190.50 cm) km MDM: 06:08 IV Saline Lock ordered. mm11 06:08 morphine 4 mg IVP every 30 minutes; Document pain score/vitals after each dose (Hold if mm11 SBP < 90mmHg) x2 ordered. 06:08 Diazepam 5 mg IVP once ordered. mm11 06:08 ketorolac 30 mg IVP once ordered. mm11 06:11 Financial registration complete. hs2 07:13 Ambulate patient to assess pain tolerance ordered. mm11 07:24 [facility] Payment Agreement was scanned into [employer] and attached to record. hs2 18:24 T-Sheet-- Draft Copy was scanned into [employer] and attached to record. klr Administered Medications: 06:24 Drug: morphine 4 mg [morphine 4 mg/mL intravenous cartridge (1 mL)] Route: IVP; Site: nn1 right antecubital; 06:24 Drug: Diazepam 5 mg [diazepam 5 mg/mL injection syringe (1 mL)] Route: IVP; Site: right nn1 antecubital; 06:24 Drug: ketorolac 30 mg [ketorolac 30 mg/mL (1 mL) injection solution (1 mL)] Route: IVP; nn1 Site: right antecubital; Signatures: Indigo Lu RN RN kmg1 Delia Ravi RN RN dls Maynard, Matthew, DO DO mm11 Cayla Richter, Reg Reg hs2 Emily Grantr Fatuma Young RN nn1 The chart was reviewed and I authenticate all verbal orders and agree with the evaluation and treatment provided.Attachments: 07:24 [facility] Payment Agreement hs2 18:24 T-Sheet-- Draft Copy klr Chart Complete MTDD
--- NOTE | 2016-12-25 09:08 | EDDOCDS ---
Physician Documentation [facility] Name: Jr Ragland Age: 31 yrs Sex: Male : 1985 Arrival Date: 12/23/2016 Time: 03:28 Bed 7 Private MD: Disposition: 12/23/16 07:38 Discharged to Home/Self Care. Impression: Low back pain. - Condition is Stable. - Discharge Instructions: Back Pain, Adult, Back Pain, Adult, [id number]. - Prescriptions for Naprosyn 500 mg Oral Tablet - take 1 tablet by ORAL route 2 times per day take with food; 30 tablet. Percocet 5- 325 mg Oral Tablet - take 1 tablet by ORAL route every 6 hours As needed MDD: 4 tabs; 20 tablet. Valium 5 mg Oral Tablet - take 1 tablet by ORAL route every 8 hours As needed MDD: 3 tabs; 20 tablet. - Medication Reconciliation, Local Pharmacy Hours, Work Release Form - 2 day form. - Follow up: [facility]; When: Call to arrange an appointment; Reason: Continuance of care. - Problem is an acute exacerbation. - Symptoms have improved. Historical: - Allergies: Red Dye; Tramadol HCl (Rash); - Home Meds: 1. albuterol sulfate 90 mcg/actuation Inhl HFAA 2 puffs every 4-6 hours (Last dose: 12/22/2016 17:00) 2. Robaxin 500 mg Oral tab 2 tabs 4 times per day (Last dose: 12/22/2016 17:00) 3. ibuprofen 800 mg Oral tab 1 tab 3 times per day (Last dose: 12/22/2016 19:00) - PMHx: Hypertension; Diabetes - NIDDM: controlled; - PSHx: Adenoidectomy; Tonsillectomy; bilateral knee surgery; - Social history: Smoking status: Patient uses tobacco products, heavy tobacco smoker. No barriers to communication noted, The patient speaks fluent Bengali, Speaks appropriately for age. - Family history: Not pertinent. - : The pt / caregiver states he / she is not on anticoagulants. Home medication list is obtained from the patient. - Exposure Risk Screening:: None identified. Vital Signs: 12/23 03:58 BP 143 / 82; Pulse 99; Resp 20; Temp 97.9(O); Pulse Ox 96% on R/A; Weight 145.15 kg / kmg1 320 lbs (R); Height 6 ft. 3 in. (190.50 cm) (R); Pain 10/10; 07:49 BP 145 / 82; Pulse 84; Resp 16; Temp 97.6(O); Pulse Ox 96% on R/A; Pain 4/10; jrd 03:58 Body Mass Index 40.00 (145.15 kg, 190.50 cm) km MDM: 06:08 IV Saline Lock ordered. mm11 06:08 morphine 4 mg IVP every 30 minutes; Document pain score/vitals after each dose (Hold if mm11 SBP < 90mmHg) x2 ordered. 06:08 Diazepam 5 mg IVP once ordered. mm11 06:08 ketorolac 30 mg IVP once ordered. mm11 06:11 Financial registration complete. hs2 07:13 Ambulate patient to assess pain tolerance ordered. mm11 07:24 [facility] Payment Agreement was scanned into '[employer] and attached to record. hs2 18:24 T-Sheet-- Draft Copy was scanned into [employer] and attached to record. klr Administered Medications: 06:24 Drug: morphine 4 mg [morphine 4 mg/mL intravenous cartridge (1 mL)] Route: IVP; Site: nn1 right antecubital; 06:24 Drug: Diazepam 5 mg [diazepam 5 mg/mL injection syringe (1 mL)] Route: IVP; Site: right nn1 antecubital; 06:24 Drug: ketorolac 30 mg [ketorolac 30 mg/mL (1 mL) injection solution (1 mL)] Route: IVP; nn1 Site: right antecubital; Signatures: Indigo Lu RN RN kmg1 Delia Ravi RN RN dls Maynard, Matthew, DO DO mm11 Cayla Richter, Reg Reg hs2 Emily Grantr Fatuma Young RN nn1 The chart was reviewed and I authenticate all verbal orders and agree with the evaluation and treatment provided.Attachments: 07:24 [facility] Payment Agreement hs2 18:24 T-Sheet-- Draft Copy klr Chart Complete MTDD
== END 2016-12-23 08:07 | disposition home or self-care (01) ==
LOC: M ED 03:28
DX: M54.5 Low back pain (principal); I10 Essential (primary) hypertension; E11.9 Type 2 diabetes mellitus without complications; F17.200 Nicotine dependence, unspecified, uncomplicated; Z79.1 Long term (current) use of non-steroidal anti-inflammatories (NSAID); Z79.51 Long term (current) use of inhaled steroids; Z79.899 Other long term (current) drug therapy; Z88.5 Allergy status to narcotic agent; Z91.09 Other allergy status, other than to drugs and biological substances; Z90.89 Acquired absence of other organs
CPT/HCPCS: 96374; 96375; 99284; J1885; J3360

== ENCOUNTER 2017-02-15 00:56 | Emergency (ER) | payer OTHER ==
[~2017-02-15] VITALS: Ht 190.5 cm; Wt 149.7 kg
[2017-02-15 01:01] VITALS: BP 198/113
[2017-02-15] MEDS ORDERED: NEOSPORIN OINT 0.9 GM PKT (FLOOR STOCK) As Ordered ONE (01:17)
[2017-02-15] MEDS ORDERED: METAL LOCK LOOP XX ONE ×2 (01:35→01:37)
[2017-02-15] MEDS ORDERED: KETOROLAC 60 MG/2 ML VIAL (J1885) IM ONE (01:45)
--- NOTE | 2017-02-15 01:50 | REPUSA ---
CT of the facial bones without contrast Clinical history: right-sided pain. Technique: Multiple axial CT images were obtained through the facial bones and paranasal sinuses util izing 3 mm axial slices without administration of contrast. Coronal and sagittal reconstructions were also obtained. Findings: A small mucus retention cyst is seen in the antrum of the right maxillary sinus. A small mu cus retention cyst is seen in the inferior left maxillary sinus. The visualized paranasal sinuses are otherwise clear. The osteomeatal complexes are patent bilaterally. The nasal septum is midline. The visualized mastoid air cells are clear. The osseous structures do not demonstrate any acute abnormali ties. The superficial soft tissues are within normal limits. Impression: No acute abnormality. Small mucus retention cysts in the maxillary sinuses bilaterally.
[2017-02-15] MEDS ORDERED: KETO10TAB PO (02:16)
== END 2017-02-15 02:36 | disposition home or self-care (01) ==
LOC: M ED 01:38
DX: R68.84 Jaw pain (principal); F17.210 Nicotine dependence, cigarettes, uncomplicated; E11.9 Type 2 diabetes mellitus without complications
CPT/HCPCS: 70486; 96372; 99281; J1885

== ENCOUNTER 2017-03-23 12:16 | Emergency (ER) | payer OTHER ==
[~2017-03-23] VITALS: Ht 190.5 cm; Wt 149.7 kg
[~2017-03-23 12:16] MED LIST changes: +KETO10TAB PO
[2017-03-23] MEDS ORDERED: IBUP600T26 PO (12:41)
[2017-03-23] MEDS ORDERED: BUPIVACAINE HCL 0.5% 10 ML VIAL SC ONE (13:30)
[2017-03-23] MEDS ORDERED: LIDOCAINE 2% MDV 20 ML VIAL SC ONE (13:30)
[2017-03-23] MEDS ORDERED: ACET30TAB PO (13:43)
[2017-03-23] MEDS ORDERED: NAPR500T2 PO (13:45)
[2017-03-23] MEDS ORDERED: CLIN900I5 PO (13:47)
[2017-03-23 13:54] VITALS: BP 147/93
== END 2017-03-23 14:14 | disposition home or self-care (01) ==
LOC: M ED 13:14
DX: K02.9 Dental caries, unspecified (principal); I10 Essential (primary) hypertension; J45.909 Unspecified asthma, uncomplicated; E11.9 Type 2 diabetes mellitus without complications; F90.9 Attention-deficit hyperactivity disorder, unspecified type; F17.200 Nicotine dependence, unspecified, uncomplicated; Z88.5 Allergy status to narcotic agent; Z91.018 Allergy to other foods

== ENCOUNTER 2017-06-10 15:40 | Emergency (ER) | payer OTHER ==
[~2017-06-10] VITALS: Ht 190.5 cm; Wt 147.3 kg
[~2017-06-10 15:40] MED LIST changes: +ACET30TAB PO; +CLIN900I5 PO; +IBUP-1022 PO; -METF850T PO; +METF850T4 PO; +NAPR500T3 PO; +SALI0.6523; -SALI0.653
[2017-06-10] MEDS ORDERED: IBUP80TA PO (17:00)
[2017-06-10] MEDS ORDERED: METHOCARBAMOL 500 MG TAB PO ONE (17:00)
[2017-06-10] MEDS ORDERED: KETOROLAC 60 MG/2 ML VIAL (J1885) IM ONE (17:00)
[2017-06-10] MEDS ORDERED: ROBA500T PO (17:00)
[2017-06-10] MEDS ORDERED: NORCOTAB PO (17:00)
[2017-06-10 17:13] VITALS: BP 143/72
== END 2017-06-10 17:27 | disposition home or self-care (01) ==
LOC: M ED 15:40
DX: S39.012A Strain of muscle, fascia and tendon of lower back, initial encounter (principal); X58.XXXA Exposure to other specified factors, initial encounter; Y92.019 Unspecified place in single-family (private) house as the place of occurrence of the external cause; Y93.89 Activity, other specified; Y99.8 Other external cause status; E11.9 Type 2 diabetes mellitus without complications; J45.909 Unspecified asthma, uncomplicated; F90.9 Attention-deficit hyperactivity disorder, unspecified type; F17.200 Nicotine dependence, unspecified, uncomplicated; Z88.5 Allergy status to narcotic agent; Z91.09 Other allergy status, other than to drugs and biological substances
CPT/HCPCS: 96372; 99282; J1885

== ENCOUNTER 2017-06-12 18:54 | Emergency (ER) | payer OTHER ==
[~2017-06-12] VITALS: Ht 190.5 cm; Wt 143.2 kg
[~2017-06-12 18:54] MED LIST changes: +IBUP80TA PO; +NORCOTAB PO; +ROBA500T PO
[2017-06-12] MEDS ORDERED: ONDANSETRON 4MG/2ML VIAL (J2405) IV ONE (20:45)
[2017-06-12] MEDS ORDERED: KETOROLAC 30 MG/ML VIAL (J1885) IV ONE (20:45)
[2017-06-12] MEDS ORDERED: ACETAMINOPHEN 325 MG TAB PO ONE (22:00)
--- NOTE | 2017-06-12 22:00 | REPUSA ---
CLINICAL HISTORY: Headache and fever. COMPARISON: April 15, 2015. TECHNIQUE: Head CT without contrast. Total DLP 894.3 mGy*cm Brain: No intracranial hemorrhage, hydrocephalus, acute parenchymal edema or evident mass. Calvarium: Unremarkable. Sinuses (partially visualized): Clear. IMPRESSION: No acute intracranial findings.
[2017-06-12 22:26] LABS: BASO % 0.7 % (0.0-1.0); EOS % 0.8 % (0.0-3.0); LARGE UNSTAINED CELL # 0.1 K/mm3 (0.0-0.4); LARGE UNSTAINED CELL % 1.1 % (0.0-4.0); LYMPH # 1.2 K/mm3 (1.5-6.5); LYMPH % 15.9 % (24.0-44.0); MEAN CORPUSCULAR HEMOGLOBIN 29.2 pg (27.0-33.0); MEAN CORPUSCULAR HGB CONC 33.8 g/dl (32.0-36.5); MEAN CORPUSCULAR VOLUME 86.5 fl (80.0-96.0); MONO # 0.5 K/mm3 (0.0-0.8); MONO % 7.4 % (0.0-5.0); NEUTROPHILS # 5.3 K/mm3 (1.8-7.7); NEUTROPHILS % 74.1 % (36.0-66.0); PLATELET COUNT, AUTOMATED 178 k/mm3 (150-450); RED CELL DISTRIBUTION WIDTH 12.5 % (11.5-14.5); WHITE BLOOD COUNT 7.2 K/mm3 (4.0-10.0)
[2017-06-12 22:41] LABS: ERYTHROCYTE SEDIMENTATION RATE 4 mm/hr (0-15)
[2017-06-12 22:43] LABS: CONTROL LINE MONO RF C INT CTR LINE PRESENT
[2017-06-12 22:47] LABS: ANION GAP 7 MEQ/L (8-16); BLOOD UREA NITROGEN 13 MG/DL (7-18); CALCIUM LEVEL 9.1 MG/DL (8.5-10.1); CARBON DIOXIDE LEVEL 29 MEQ/L (21-32); CHLORIDE LEVEL 102 MEQ/L (98-107); CREATININE FOR GFR 1.18 MG/DL (0.70-1.30); GLOMERULAR FILTRATION RATE > 60.0 (>60); GLUCOSE, FASTING 157 MG/DL (70-105); POTASSIUM SERUM 4.1 MEQ/L (3.5-5.1); SODIUM LEVEL 138 MEQ/L (136-145)
[2017-06-12] MEDS ORDERED: IBUP80TA PO (23:23)
[2017-06-12] MEDS ORDERED: ZOFR4TAB3 PO (23:23)
[2017-06-12 23:25] VITALS: BP 144/67
== END 2017-06-12 23:55 | disposition home or self-care (01) ==
LOC: M ED 18:54
DX: R51 Headache (principal); R50.9 Fever, unspecified; B34.9 Viral infection, unspecified; Z88.8 Allergy status to other drugs, medicaments and biological substances; Z91.02 Food additives allergy status
CPT/HCPCS: 36415; 70450; 80048; 85025; 85652; 86140; 86308; 86663; 86664; 86665; 96374; 96375; 99283; J1885; J2405

== ENCOUNTER 2017-06-30 07:42 | Emergency (ER) | payer OTHER ==
[~2017-06-30] VITALS: Ht 190.5 cm; Wt 145.4 kg
[~2017-06-30 07:42] MED LIST changes: +ZOFR4TAB3 PO
[2017-06-30] MEDS ORDERED: BACTRIM 160MG/800MG DS TAB PO ONE (09:45)
[2017-06-30] MEDS ORDERED: BACT800T5 PO (10:23)
[2017-06-30 10:40] VITALS: BP 138/77
== END 2017-06-30 10:41 | disposition home or self-care (01) ==
LOC: M ED 07:42
DX: L02.211 Cutaneous abscess of abdominal wall (principal); L02.413 Cutaneous abscess of right upper limb; I10 Essential (primary) hypertension; J45.909 Unspecified asthma, uncomplicated; E11.9 Type 2 diabetes mellitus without complications; F90.9 Attention-deficit hyperactivity disorder, unspecified type; F17.200 Nicotine dependence, unspecified, uncomplicated; Z88.5 Allergy status to narcotic agent; Z91.02 Food additives allergy status

== ENCOUNTER 2018-08-06 21:03 | Emergency (ER) | payer OTHER ==
[2018-08-06] MEDS: ACETAMINOPHEN 325 MG TAB PO (22:00)
[2018-08-06] MEDS: dexameTHASONE 20 MG/5 ML VIAL (J1100) IV (22:00)
[2018-08-06 22:02] LABS: BASO # 0.1 10^3/uL (0.0-0.2); BASO % 0.3 % (0.0-1.0); EOS # 0.1 10^3/uL (0.0-0.50); EOS % 0.7 % (0.0-3.0); HEMATOCRIT 41.8 % (42.0-52.0); HEMOGLOBIN 14.1 g/dl (13.5-17.5); IMMATURE GRANULOCYTE % 0.5 % (0-3.0); LYMPH # 1.4 10^3/uL (1.5-4.5); LYMPH % 8.2 % (24.0-44.0); MEAN CORPUSCULAR HEMOGLOBIN 29.1 pg (27.0-33.0); MEAN CORPUSCULAR HGB CONC 33.7 g/dl (32.0-36.5); MEAN CORPUSCULAR VOLUME 86.2 fl (80.0-96.0); MONO # 1.2 10^3/uL (0.0-0.8); MONO % 6.7 % (0.0-5.0); NEUTROPHILS # 14.5 10^3/uL (1.8-7.7); NEUTROPHILS % 83.6 % (36.0-66.0); PLATELET COUNT, AUTOMATED 241 10^3/uL (150-450); RED BLOOD COUNT 4.85 10^6/uL (4.30-6.10); RED CELL DISTRIBUTION WIDTH 12.1 % (11.5-14.5); WHITE BLOOD COUNT 17.3 10^3/uL (4.0-10.0)
[2018-08-06 22:16] LABS: INFLUENZA A AMPLIFICATION NEGATIVE (NEGATIVE); INFLUENZA B AMPLIFICATION NEGATIVE (NEGATIVE)
[2018-08-06] MEDS: ALBUTEROL SULFATE 2.5 MG/0.5 ML INH NEB SOLN NEB (22:28)
[2018-08-06 22:32] LABS: ANION GAP 12 MEQ/L (8-16); BLOOD UREA NITROGEN 15 MG/DL (7-18); CARBON DIOXIDE LEVEL 25 MEQ/L (21-32); CHLORIDE LEVEL 102 MEQ/L (98-107); CREATININE FOR GFR 1.21 MG/DL (0.70-1.30); GLOMERULAR FILTRATION RATE > 60.0 (>60); GLUCOSE, FASTING 230 MG/DL (70-100); POTASSIUM SERUM 4.2 MEQ/L (3.5-5.1); SODIUM LEVEL 139 MEQ/L (136-145)
== END 2018-08-07 02:08 | disposition home or self-care (01) ==
LOC: M ED 21:03
DX: J06.9 Acute upper respiratory infection, unspecified (principal); E11.9 Type 2 diabetes mellitus without complications; Z87.891 Personal history of nicotine dependence; Z91.02 Food additives allergy status; Z88.5 Allergy status to narcotic agent
CPT/HCPCS: J1100

== ENCOUNTER → 2019-06-29 | Outpatient (REF) | payer OTHER ==
[~2019-06-29] MED LIST changes: +ACET-716 PO; -ACET30TAB PO; -CLIN900I5 PO; +CLIN900I7 PO; +HYDR-3715 PO; +NAPR-885 PO; -NAPR500T3 PO; -NORCOTAB PO; -SALI0.6523; +SALI0.6528; +ZOFR4TAB14 PO; -ZOFR4TAB3 PO
== END ==
LOC: M LAB REF 20:03
PROVIDERS: ATTEND Surgery
DX: Z30.2 Encounter for sterilization (principal)